=== PATIENT | female | born 1985 | race Two or more races ===

== ENCOUNTER 2017-05-10 18:33 | Emergency (ER) | payer MEDICAID ==
[~2017-05-10] VITALS: Ht 172.7 cm; Wt 77.1 kg
[2017-05-10] MEDS ORDERED: KETOROLAC TROMETH 60MG/2ML VIAL IM ONE (21:30)
[2017-05-10] MEDS ORDERED: HYDROmorphone HCL 2 MG/ML VL IV ONE (22:45)
[2017-05-10] MEDS ORDERED: ONDANSETRON HCL 4 MG/2 ML VIAL IV ONE (22:45)
[2017-05-11 02:12] LABS: Basophils # (auto) 0.1 uL; Basophils % (auto) 0.4 % (0.0-2.0); CONDITION Y; Eosinophils # (auto) 0.1 uL; Eosinophils % (auto) 0.5 % (0.0-7.0); Hematocrit 40.8 % (36.0-46.0); Hemoglobin 13.8 g/dL (12.2-16.2); Lymphocytes # (auto) 2.8 uL; Lymphocytes % (auto) 20.8 % (10.0-50.0); Mean Corpuscular Hgb Conc. 33.8 g/dL (32.0-36.0); Mean Corpuscular Volume 88.8 fL (80.0-100.0); Mean Platelet Volume 7.9 fL (7.4-10.4); Monocytes # (auto) 0.7 uL; Monocytes % (auto) 5.3 % (0.0-12.0); Platelet Count (auto) 379 10^3/uL (140-450); Red Cell Distribution Width 13.3 % (11.6-16.0); White Blood Cell 13.7 10^3/uL (4.4-10.8)
[2017-05-11 02:23] LABS: INR 0.98 (0.9-1.15); Prothrombin Time 10.7 sec (9.37-12.3)
[2017-05-11 02:25] LABS: Albumin 3.6 g/dL (3.4-5.0); BUN/Creatinine Ratio 8.2; Calcium 8.5 mg/dL (8.5-10.1); Potassium 3.8 mmol/L (3.5-5.1)
[2017-05-11 02:28] LABS: Bilirubin, Total 0.4 mg/dL (0.2-1.0); Total Protein 7.6 g/dL (6.4-8.2)
[2017-05-11] MEDS ORDERED: ONDANSETRON HCL 4 MG/2 ML VIAL ONE (04:04)
[2017-05-11] MEDS ORDERED: HYDROmorphone HCL 2 MG/ML VL IV ONE (04:15)
[2017-05-11] MEDS ORDERED: SODIUM CHLORIDE 0.9% 1,000 ML IV ONE (06:00)
[2017-05-11 07:42] VITALS: BP 97/44
[2017-05-11] MEDS ORDERED: HYDROcodone-ACET 10/325MG TAB PO ONE (09:45)
== END 2017-05-11 12:40 | disposition home or self-care (01) ==
LOC: EDBD 18:33 → ER 18:43
DX: M25.551 Pain in right hip (principal); M25.511 Pain in right shoulder; V43.52XA Car driver injured in collision with other type car in traffic accident, initial encounter; Y93.89 Activity, other specified; Y92.89 Other specified places as the place of occurrence of the external cause; Y99.8 Other external cause status
CPT/HCPCS: 36415; 72131; 72192; 73700; 80053; 85025; 85610; 96361; 96372; 96374; 96375; 96376; 99285; J1170; J1885; J2405; J7030

== ENCOUNTER 2019-06-25 22:35 | Emergency (ER) | payer MEDICAID ==
[~2019-06-25] VITALS: Ht 157.5 cm; Wt 81.6 kg
[2019-06-26] MEDS ORDERED: LIDOCAINE 1% HCL (LOCAL ANESTH.) INJ 20ML MDV ID ONE (00:15)
[2019-06-26 00:36] VITALS: BP 118/63
[2019-06-26] MEDS ORDERED: MORPHINE SULF INJ 2 MG/ML SYRINGE 1ML IV ONE (01:00)
[2019-06-26] MEDS ORDERED: ONDANSETRON HCL 4 MG/2 ML VIAL IV ONE (01:00)
== END 2019-06-26 02:02 | disposition home or self-care (01) ==
LOC: ER 22:35
DX: S63.286A Dislocation of proximal interphalangeal joint of right little finger, initial encounter (principal); S62.626A Displaced fracture of middle phalanx of right little finger, initial encounter for closed fracture; W10.8XXA Fall (on) (from) other stairs and steps, initial encounter; Y93.89 Activity, other specified; Y92.89 Other specified places as the place of occurrence of the external cause; Y99.8 Other external cause status
CPT/HCPCS: 26770; 73140; 94761; 96374; 96375; 99284; J2270; J2405; J2001

== ENCOUNTER 2021-05-22 22:30 | Emergency (ER) | payer MEDICAID ==
[~2021-05-22] VITALS: Ht 157.5 cm; Wt 74.8 kg
[2021-05-23] MEDS ORDERED: IBUPROFEN 800 MG TAB PO ONE (01:00)
[2021-05-23] MEDS ORDERED: ACETAMINOPHEN 500 MG TAB PO ONE (01:00)
[2021-05-23 03:53] VITALS: BP 118/58
== END 2021-05-23 04:35 | disposition home or self-care (01) ==
LOC: ER 22:35
DX: S92.335A Nondisplaced fracture of third metatarsal bone, left foot, initial encounter for closed fracture (principal); S92.345A Nondisplaced fracture of fourth metatarsal bone, left foot, initial encounter for closed fracture; S43.492A Other sprain of left shoulder joint, initial encounter; W18.39XA Other fall on same level, initial encounter; Y93.89 Activity, other specified; Y92.89 Other specified places as the place of occurrence of the external cause; Y99.8 Other external cause status
CPT/HCPCS: 73030; 73610

== ENCOUNTER 2022-09-23 15:14 | Emergency (ER) | payer MEDICAID ==
[2022-09-23 15:58] VITALS: BP 125/71
[2022-09-23] MEDS ORDERED: FLEET ENEMA(ADULT) 135 ML PR ONE (16:45)
[2022-09-23] MEDS ORDERED: LACTULOSE 20Gm/30ML SOLN PO ONE (16:45)
[2022-09-23] MEDS ORDERED: LACT10SO3 PO (17:14)
== END 2022-09-23 17:24 | disposition home or self-care (01) ==
LOC: ER 15:15
DX: K59.00 Constipation, unspecified (principal)
CPT/HCPCS: 74018

== ENCOUNTER 2023-04-16 10:51 | Emergency (ER) | payer MEDICAID ==
[~2023-04-16] VITALS: Ht 157.5 cm; Wt 74.7 kg
[~2023-04-16 10:51] MED LIST: LACT10SO3 PO
[2023-04-16 11:51] LABS: Urine Bacteria NONE SEEN /hpf (None Seen); Urine Blood Negative /uL (Negative); Urine Specific Gravity 1.013 (1.001-1.035); Urine WBC <1 /hpf (0 - 5)
[2023-04-16] MEDS ORDERED: DOCU-94 PO (12:11)
[2023-04-16 13:15] VITALS: BP 126/80
== END 2023-04-16 13:19 | disposition home or self-care (01) ==
LOC: ER 10:51
DX: K59.00 Constipation, unspecified (principal); Z88.6 Allergy status to analgesic agent; Z88.8 Allergy status to other drugs, medicaments and biological substances; Z79.899 Other long term (current) drug therapy
CPT/HCPCS: 74018; 81001

== ENCOUNTER 2023-11-28 23:15 | Emergency (ER) | payer SELFPAY ==
[~2023-11-28] VITALS: Ht 157.5 cm; Wt 75.0 kg
[~2023-11-28 23:15] MED LIST changes: +DOCU-94 PO
[2023-11-28 23:32] VITALS: BP 120/75; PULSE 86; RESP 16; O2SAT 96
[2023-11-28 23:55] LABS: Urine Bacteria NONE SEEN /hpf (None Seen); Urine Blood 2+ /uL (Negative); Urine Clarity HAZY (Clear); Urine Color Yellow (Yellow); Urine Mucus FEW (None Seen); Urine Protein, UAD 1+ (Negative); Urine Specific Gravity 1.028 (1.001-1.035); Urine Urobilinogen Normal (Negative); Urine WBC 3 /hpf (0 - 5); Urine pH 5.5 (5.0-8.0)
== END 2023-11-29 04:56 | disposition left against medical advice (07) ==
LOC: ER 23:15
DX: R10.9 Unspecified abdominal pain (principal); M54.2 Cervicalgia; R30.9 Painful micturition, unspecified; Z53.21 Procedure and treatment not carried out due to patient leaving prior to being seen by health care provider
CPT/HCPCS: 74176; 81001; 81025